=== PATIENT | female | born 1965 ===

== ENCOUNTER 2018-03-30 09:19 | Emergency (ER) | payer OTHER ==
[~2018-03-30] VITALS: Ht 162.6 cm; Wt 66.7 kg
[2018-03-30] MEDS ORDERED: LEVO-T88 MCG PO (09:42)
[2018-03-30] MEDS ORDERED: FLONASE ALLERG9.9 ML NASAL (13:32)
[2018-03-30] MEDS ORDERED: ZITHROMAX TRI-500 MG PO (13:32)
[2018-03-30] MEDS ORDERED: PROMETH-CODEIN 65 ML PO (13:32)
[2018-03-30] MEDS ORDERED: MUCINEX DM ER1 EAC1 PO (13:32)
== END 2018-03-30 13:55 | disposition home or self-care (01) ==
LOC: ER 09:19
DX: J06.9 Acute upper respiratory infection, unspecified (principal)